=== PATIENT | male | born 1960 | race African-American/Black ===

== ENCOUNTER 2019-02-14 04:12 | Emergency (ER) | payer OTHER ==
[~2019-02-14] VITALS: Ht 185.4 cm; Wt 124.7 kg
[2019-02-14 04:14] VITALS: BP 146/89
--- NOTE | 2019-02-14 04:23 | NUR ---
ED Nurse Note: Patient has complaints of fluttering heart and SOB.
[2019-02-14] MEDS ORDERED: dilTIAZem HCl 25mg/5ml Inj IVP ONE (04:30)
--- NOTE | 2019-02-14 04:31 | Emergency Room Report ---
History of Present Illness General Chief Complaint: Chest Pain Source: Patient Present Illness HPI This is a 58-year-old male with history of high blood pressure but not on blood pressure medication. He presents with chief complaint of palpitation and chest pain. He woke up with this symptom. He felt his heart fluttering and beating fast. [place] short of breath. Some mild chest pressure. No nausea no vomiting. No fever chills. Onset was about an hour ago. He was at a wedding yesterday and had some alcohol but said he was not drinking heavily. No drug use. Denies any diaphoresis. No exertional component. No radiation. Allergies: Coded Allergies: SHRIMP (Verified Allergy, Intermediate, 02/14/19) Patient History Past Medical History: see triage record, old chart reviewed, HTN Past Surgical History: none Pertinent Family History: none Social History: Denies: smoking Immunizations: other Reviewed Nursing Documentation: PMH: Agreed; PSxH: Agreed Nursing Documentation-PMH Past Medical History: No History, Except For Hx Hypertension: Yes Hx Asthma: Yes - juvenile Review of Systems Eye: Denies: eye pain, blurred vision ENT: Denies: ear pain, nose congestion, throat swelling Respiratory: Denies: cough, shortness of breath Cardiovascular: Reports: chest pain, palpitations Gastrointestinal: Denies: abdominal pain, diarrhea, nausea, vomiting Musculoskeletal: Denies: back pain, joint pain Skin: Denies: rash Neurological: Denies: headache, numbness Endocrine: Denies: increased thirst, increased urine Hematologic/Lymphatic: Denies: easy bruising All Other Systems: negative except mentioned in HPI Physical Exam Vital Signs Date Time Temp Pulse Resp B/P (MAP) Pulse Ox O2 Delivery O2 Flow Rate FiO2 02/14/19 04:14 97.3 122 14 146/89 (108) 95 Vitals with tachycardia Sp02 EP Interpretation: reviewed, normal General Appearance: well appearing, no apparent distress, alert Head: normocephalic, atraumatic Eyes: bilateral eye PERRL, bilateral eye EOMI ENT: hearing grossly normal, normal pharynx Neck: full range of motion, supple, no meningismus Respiratory: chest non-tender, lungs clear, normal breath sounds Cardiovascular #1: no murmur, tachycardia, irregularly irregular Gastrointestinal: normal bowel sounds, non tender, no mass, no organomegaly, no bruit, non-distended Musculoskeletal: back normal, gait/station normal, normal range of motion Psychiatric: mood/affect normal Procedures Critical Care Time Critical Care Time Critical care is mandated in this patient who presented with A. fib. Patient require my urgent intervention to attenuate the risks of metabolic collapse which may lead to cardiovascular collapse and . Critical care time is 35 minutes excluding any reportable procedure. Critical care time included evaluation, multiple reevaluation, looking at old charts, interpreting laboratory and diagnostic data, discussing case with patient and family and consultants, and charting. Medical Decision Making Diagnostic Impression: Primary Impression: Rapid atrial fibrillation Additional Impression: Hypertension Qualified Codes: I10 - Essential (primary) hypertension ER Course Patient presents with new onset rapid A. fib. Now in sinus with rate controlled after given a dose of Cardizem. He has history of high blood pressure but not on medication. He does have proteinuria which show evidence of microscopic damage. He is he medically stable. Stable for transfer to [facility]. I discussed the case with Dr. Zamarripa who accepted pt for transfer. EKG Diagnostic Results Rate: tachycardiac Rhythm: other - Rapid A. fib ST Segments: other - nonspecific ST changes Rhythm Strip Diag. Results EP Interpretation: yes Chest X-Ray Diagnostic Results Chest X-Ray Diagnostic Results : Chest X-Ray Ordered: Yes # of Views/Limited/Complete: 1 View Indication: Chest Pain EP Interpretation: Yes Interpretation: no consolidation, no effusion, no pneumothorax, no acute cardiopulmonary disease Impression: No acute disease Electronically Signed by: John Lopez MD Last Vital Signs Date Time Temp Pulse Resp B/P (MAP) Pulse Ox O2 Delivery O2 Flow Rate FiO2 02/14/19 04:14 97.3 122 14 146/89 (108) 95 Status: improved [facility] Condition: Stable John Lopez MD Feb 14, 2019 04:31
[2019-02-14 04:54] LABS: BASOPHILS % (AUTO) 1.1 % (0.0-2.0); EOSINOPHILS % (AUTO) 3.9 % (0.0-3.0); HEMATOCRIT 49.8 % (42.0-52.0); MEAN CORPUSCULAR VOLUME 87 FL (80-99); MONOCYTES % (AUTO) 9.9 % (1.0-10.0); PLATELET COUNT 221 K/UL (150-450); RED BLOOD COUNT 5.74 M/UL (4.70-6.10); RED CELL DISTRIBUTION WIDTH 11.6 % (11.6-14.8); WHITE BLOOD COUNT 5.8 K/UL (4.8-10.8)
--- NOTE | 2019-02-14 05:00 | NUR ---
ED Nurse Note: Blood and urine specimen currently being processed. Patient is resting with at bedside. vital signs are stable, patient reports no pain.
[2019-02-14 05:01] VITALS: BP 134/84
[2019-02-14 05:03] LABS: APPEARANCE,URINE CLEAR; BILIRUBIN, URINE NEGATIVE (NEGATIVE); COLOR,URINE PALE YELLOW; GLUCOSE, URINE (UA) NEGATIVE (NEGATIVE); KETONES,URINE NEGATIVE (NEGATIVE); LEUKOCYTE ESTERASE ,URINE NEGATIVE (NEGATIVE); NITRITE,URINE NEGATIVE (NEGATIVE); PH,URINE 6 (4.5-8.0); PROTEIN,URINE 3+ (NEGATIVE); UROBILINOGEN,URINE NORMAL MG/DL (0.0-1.0)
[2019-02-14 05:42] LABS: ANION GAP 7 mmol/L (5-15); BLOOD UREA NITROGEN 15 mg/dL (7-18); CALCIUM 9.4 MG/DL (8.5-10.1); CARBON DIOXIDE 29 MMOL/L (21-32); CHLORIDE 102 MMOL/L (98-107); CREATININE 1.4 MG/DL (0.55-1.30); POTASSIUM 3.6 MMOL/L (3.5-5.1); SODIUM 138 MMOL/L (136-145)
[2019-02-14 05:58] LABS: ALANINE AMINOTRANSFERASE 21 U/L (12-78); ALBUMIN/GLOBULIN RATIO 0.9 (1.0-2.7); ALKALINE PHOSPHATASE 72 U/L (46-116); ASPARTATE AMINO TRANSFERASE 27 U/L (15-37); BILIRUBIN,TOTAL 0.2 MG/DL (0.2-1.0); CKMB 1.3 NG/ML (0.0-3.6); CREATINE KINASE 298 U/L (26-308)
--- NOTE | 2019-02-14 06:01 | NUR ---
ED Nurse Note: Patietn currently sleeping, awaiting transport arrival. at bedside.
[2019-02-14 06:23] VITALS: BP 119/94
--- NOTE | 2019-02-14 06:35 | NUR ---
ED Nurse Note: Called [facility] to give report to Mey. Spoke witht he pattern data operator Hannah who informed me that Mey needed my name and number to return my call for report. 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
--- NOTE | 2019-02-14 06:55 | NUR ---
ED Nurse Note: Called and again and gave report to Tegan BRODERICK.
--- NOTE | 2019-02-14 07:19 | NUR ---
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
[2019-02-14 07:21] VITALS: BP 125/75
--- NOTE | 2019-02-14 10:44 | Diagnostic Imaging Report ---
Indication: Chest pain and tightness for one day Technique: One view of the chest Comparison: none Findings: The heart is mildly enlarged. The aorta is tortuous and ectatic. Upper mediastinum is unremarkable. Impression: Cardiomegaly. No acute process
--- NOTE | 2019-02-14 15:11 | Cardiology Report ---
APPROVED REPORT EKG Measurement Heart [id number] Normal sinus rhythm Septal infarct, age undetermined Abnormal ECG
--- NOTE | 2019-02-14 15:11 | Cardiology Report ---
APPROVED REPORT EKG Measurement Heart [id number] Atrial flutter with variable AV block Septal infarct, age undetermined Abnormal ECG
== END 2019-02-14 07:24 | disposition short-term general hospital (02) ==
LOC: EMR 04:20
DX: I48.91 Unspecified atrial fibrillation (principal); I10 Essential (primary) hypertension
CPT/HCPCS: 36415; 71045; 80053; 81003; 82550; 82553; 83880; 84484; 85025; 85610; 85730; 93005; 96361; 96374; 99291